=== PATIENT | female | born 1975 | race Caucasian/White ===

== ENCOUNTER 2019-01-23 13:30 | Inpatient (IN) | payer OTHER ==
[~2019-01-23] VITALS: Ht 157.5 cm; Wt 54.4 kg
[~2019-01-23 13:30] MED LIST: PEPCID AC20 MG PO; PROTONIX40 MG PO
[2019-01-27] MEDS ORDERED: OXYC1TAB9 PO (12:21)
[2019-01-27] MEDS ORDERED: PROTONIX40 MG PO (12:22)
[2019-01-27] MEDS ORDERED: DOCUSATE SODIU100 MG PO (12:22)
[2019-01-27] MEDS ORDERED: ZOFRAN4 MG PO (12:23)
[2019-01-27] MEDS ORDERED: GAS-X125 MG PO (12:23)
[2019-01-27] MEDS ORDERED: FERROUS SULFAT325 MG PO (12:24)
== END 2019-01-27 12:42 | disposition home or self-care (01) | DRG 743 ==
LOC: SURG-SUITE 01-25 05:55 → O/R 01-25 05:55 → SURH 01-25 13:30 → SURG-SUITE 01-25 14:24 → SURH 01-25 16:15 → SURG-SUITE 01-27 12:42
PROVIDERS: ADMIT Obstetrics & Gynecology
PROC: 0UB90ZZ Excision of Uterus, Open Approach (ICD-10-PCS; principal; 2019-01-25 16:15)
DX: D25.9 Leiomyoma of uterus, unspecified (principal); K21.9 Gastro-esophageal reflux disease without esophagitis; K29.60 Other gastritis without bleeding